=== PATIENT | female | born 2000 | race Caucasian/White ===

== ENCOUNTER → 2020-04-12 | Outpatient (CLI) | payer BC, OTHER ==
[~2020-04-12] MED LIST: BACTRIM DS TAB1 EACH PO; BENTYL 20MG TAB20 MG PO; IBUPROFEN600 MG PO; MACROBID 100 M100 MG PO; MAGNESIUM CITR296 ML PO; PYRIDIUM100 MG PO; ZOFRAN ODT 4 MG4 MG GT
== END ==
LOC: NM 03-23 10:30
DX: R11.0 Nausea (principal)
CPT/HCPCS: 78264; A9541

== ENCOUNTER → 2020-10-07 | Outpatient (CLI) | payer OTHER | LOC: KOH-I 09:21 | DX: M25.572 Pain in left ankle and joints of left foot (principal) | CPT/HCPCS: 73610 ==